=== PATIENT | female | born 2000 | race Hispanic/Latino ===

== ENCOUNTER 2021-12-29 16:33 | Emergency (ER) | payer SELFPAY ==
[~2021-12-29] VITALS: Ht 162.6 cm; Wt 78.6 kg
== END 2021-12-29 17:43 | disposition home or self-care (01) ==
LOC: FSED 16:40
DX: R00.2 Palpitations (principal); R07.89 Other chest pain; R50.9 Fever, unspecified; R20.0 Anesthesia of skin
CPT/HCPCS: 80053; 81025; 82553; 84484; 85025; 85379; 93005; 99283